=== PATIENT | female | born 1980 | race Caucasian/White ===

== ENCOUNTER 2017-10-29 21:08 | Emergency (ER) | payer SELFPAY ==
[~2017-10-29] VITALS: Ht 167.6 cm; Wt 68.0 kg
--- OUTSIDE RECORDS SUMMARY | 2017-10-29 21:13 | XMS REPORT | Continuity of Care Document ---
Author Author [facility] Organization [facility] Address Unknown Phone Unavailable Allergies Active Description Code Type Severity Reaction Onset Reported/Identified Relationship to Patient Clinical Status Yes NKANo Known Allergies NKA Miscellaneous Allergy Unknown N/A 12/22/2006 Medications There is no data. Problems Date Dx Coded Attending Type Code Diagnosis Diagnosed By 11/09/2014 Ot 959.2 11/09/2014 Ot 959.3 11/09/2014 Ot E000.8 11/09/2014 Ot E849.0 11/09/2014 Ot E928.9 11/09/2014 Ot 726.10 11/09/2014 Ot 959.3 11/09/2014 Ot 959.7 11/09/2014 Ot E000.8 11/09/2014 Ot E849.0 11/09/2014 Ot E928.9 11/09/2014 CARINE FRANKLIN, MARQUIS Gallardo Ot 625.0 11/12/2014 Ot 959.2 11/12/2014 Ot 959.3 11/12/2014 Ot E000.8 11/12/2014 Ot E849.0 11/12/2014 Ot E928.9 11/12/2014 Ot 726.10 11/12/2014 Ot 959.3 11/12/2014 Ot 959.7 11/12/2014 Ot E000.8 11/12/2014 Ot E849.0 11/12/2014 Ot E928.9 11/12/2014 MARQUIS HAWK MD Ot 625.0 11/19/2014 CARINE FRANKLIN, MARUQIS Gallardo Ot 625.0 09/27/2016 Ot 959.2 SHLDR/UPPER ARM INJ NOS 09/27/2016 Ot 959.3 ELB/FOREARM/ WRST INJ NOS 09/27/2016 Ot E000.8 OTHER EXTERNAL CAUSE STATUS 09/27/2016 Ot E849.0 ACCIDENT IN HOME 09/27/2016 Ot E928.9 ACCIDENT NOS 09/27/2016 Ot 726.10 BURSAE TENDONS DIS SHLDER NOS 09/27/2016 Ot 959.3 ELB/FOREARM/ WRST INJ NOS 09/27/2016 Ot 959.7 LOWER LEG INJURY NOS 09/27/2016 Ot E000.8 OTHER EXTERNAL CAUSE STATUS 09/27/2016 Ot E849.0 ACCIDENT IN HOME 09/27/2016 Ot E928.9 ACCIDENT NOS 09/27/2016 MARQUIS HAWK MD Ot 625.0 DYSPAREUNIA 02/09/2017 Ot 959.2 SHLDR/UPPER ARM INJ NOS 02/09/2017 Ot 959.3 ELB/FOREARM/ WRST INJ NOS 02/09/2017 Ot E000.8 OTHER EXTERNAL CAUSE STATUS 02/09/2017 Ot E849.0 ACCIDENT IN HOME 02/09/2017 Ot E928.9 ACCIDENT NOS 02/09/2017 Ot 726.10 BURSAE TENDONS DIS SHLDER NOS 02/09/2017 Ot 959.3 ELB/FOREARM/ WRST INJ NOS 02/09/2017 Ot 959.7 LOWER LEG INJURY NOS 02/09/2017 Ot E000.8 OTHER EXTERNAL CAUSE STATUS 02/09/2017 Ot E849.0 ACCIDENT IN HOME 02/09/2017 Ot E928.9 ACCIDENT NOS 02/09/2017 MARQUIS HAWK MD Ot 625.0 DYSPAREUNIA 02/10/2017 Ot 959.2 SHLDR/UPPER ARM INJ NOS 02/10/2017 Ot 959.3 ELB/FOREARM/ WRST INJ NOS 02/10/2017 Ot E000.8 OTHER EXTERNAL CAUSE STATUS 02/10/2017 Ot E849.0 ACCIDENT IN HOME 02/10/2017 Ot E928.9 ACCIDENT NOS 02/10/2017 Ot 726.10 BURSAE TENDONS DIS SHLDER NOS 02/10/2017 Ot 959.3 ELB/FOREARM/ WRST INJ NOS 02/10/2017 Ot 959.7 LOWER LEG INJURY NOS 02/10/2017 Ot E000.8 OTHER EXTERNAL CAUSE STATUS 02/10/2017 Ot E849.0 ACCIDENT IN HOME 02/10/2017 Ot E928.9 ACCIDENT NOS 02/10/2017 MARQUIS HAWK MD Ot 625.0 DYSPAREUNIA Procedures There is no data. Results There is no data. Encounters ACCT No. Visit Date/Time Discharge Status Pt. Type Provider Facility Loc./Unit Complaint [id number] 10/02/2014 10:38:00 10/02/2014 23:59:59 [facility] Outpatient CARINE FRANKLIN, MARQUIS [facility] RAD DYSPAREUNIA [id number] 10/05/2012 08:05:00 Document Registration [id number] 09/06/2012 09:47:00 Document Registration
[2017-10-29] MEDS ORDERED: KETOROLAC 30 MG/ML VIAL IM ONE (21:45)
[2017-10-29] MEDS ORDERED: TETANUS,DIPTH,PERTUSS P/F (BOOSTRIX) 0.5 ML VIAL IM ONE (21:45)
--- NOTE | 2017-10-29 22:27 | ED Upper Extremity ---
General Chief Complaint: Laceration Stated Complaint: L HAND LAC Nursing Triage Note: PT TO ED 7 W/ S.O. FOR C/O CATFISH ISABEL CAUGHT IN LT HAND. REPORTS WAS ABLE TO REMOVE THE ISABEL BUT C/O PAIN, SWELLING TO SITE. NO OTHER C/O VOICED Nursing Sepsis Screen: No Definite Risk Source: patient, spouse Exam Limitations: no limitations History of Present Illness Date Seen by Provider: Oct 29, 2017 Time Seen by Provider: 22:12 Initial Comments patient presents to ER by private conveyance with her spouse and a chief complaint of left hand swelling between her first and second digit. She has a recent history of just prior to arrival she was fishing and a catfish isabel caught her on the dorsal side of the soft tissue webbing between her first and second digit of her left hand and stuck in her hand she slung her hand 2-3 times to get it to come off. Since then she's had a lot of pain, 8 out of 10 with swelling. Her wound has scabbed off but she said initially a little drainage came out of it. She can move her thumb very well but she feels a lot of pain with movement. Unsure when her last tetanus shot was. Allergies and Home Medications Allergies Coded Allergies: No Known Allergies (Verified Allergy, Unknown, 12/22/06) Home Medications Cephalexin 500 Mg Tablet, 500 MG PO QID Prescribed by: TULIO MOTT on 10/29/172247 Levofloxacin 750 Mg Tablet, 750 MG PO DAILY Prescribed by: TULIO MOTT on 10/29/172247 Patient Home Medication List Home Medication List Reviewed: Yes Constitutional: No chills, No diaphoresis EENTM: No ear pain, No eye pain Respiratory: No cough, No short of breath Cardiovascular: No chest pain, No palpitations Gastrointestinal: No constipation, No diarrhea, No nausea Genitourinary: No discharge, No dysuria : No Control/STD Prophylaxis: None, Other (spouse has a vasectomy) Musculoskeletal: see HPI, muscle pain, muscle stiffness Past Oyusxha-Fbzklz-Awdjrh Hx Patient Social History Alcohol Use: Occasionally Uses Recreational Drug Use: No Smoking Status: Current Everyday Smoker Type Used: Cigarettes Recent Foreign Travel: No Contact w/Someone Who Travel: No Recent Infectious Disease Expo: No Recent Hopitalizations: No Physical Abuse: No Sexual Abuse: No Mistreated: No Fear: No Past Medical History Surgeries: No Respiratory: No Cardiac: No Neurological: No Genitourinary: No Gastrointestinal: No Musculoskeletal: No Endocrine: No HEENT: No Cancer: No Psychosocial: No Nursing Suicide Risk Score: 0 Integumentary: No Blood Disorders: No Physical Exam Vital Signs Vital Signs - First Documented 10/29/17 21:28 Temp 98.2 Pulse 91 Resp 20 B/P (MAP) 123/70 (87) Pulse Ox 99 O2 Delivery Room Air Capillary Refill : Less Than 3 Seconds General Appearance: WD/WN, no apparent distress HEENT: PERRL/EOMI, pharynx normal Neck: non-tender, normal inspection Cardiovascular: normal peripheral pulses, regular rate, rhythm Respiratory: no respiratory distress, no accessory muscle use Wrist: Yes normal inspection, Yes non-tender, Yes no evidence of injury, Yes normal ROM Hand: laceration (2 mm round penetrating wound that is hemostatic.), soft tissue tenderness (webbing between the left hand first and second digit with a small puncture wound and scab over it.), stiffness, swelling Neurologic/Tendon: normal sensation, normal motor functions, normal tendon functions, responds to pain, no evidence tendon injury Neurologic/Psychiatric: alert, oriented x 3 Skin: other (erythematous, tender of the left hand) Progress/Results/Core Measures My Orders Orders - TULIO MOTT DiphtJaycee(Acell),Tet Adult (Boostrix (10/29/17 21:45) Hand, Left, 3 Views (10/29/17 21:35) Ketorolac Injection (Toradol Injection) (10/29/17 21:45) Cephalexin Capsule (Keflex Capsule) (10/29/17 23:00) Rx-Cephalexin Capsule (Rx-Keflex Capsule (10/29/17 22:52) Levofloxacin Tablet (Levaquin Tablet) (10/29/17 23:00) Rx-Levofloxacin (Rx-Levaquin) (10/29/17 22:52) Medications Given in ED Current Medications Medications Dose Ordered Sig/Ramsey Route Start Time Stop Time Status Last Admin Dose Admin Diphtheria/ Tetanus/Acell Pertussis 0.5 ml ONCE ONCE IM 10/29/17 21:45 10/29/17 21:46 DC 10/29/17 21:50 0.5 ML Ketorolac Tromethamine 30 mg ONCE ONCE IM 10/29/17 21:45 10/29/17 21:46 DC 10/29/17 21:50 30 MG Vital Signs/I&O 10/29/17 21:28 Temp 98.2 Pulse 91 Resp 20 B/P (MAP) 123/70 (87) Pulse Ox 99 O2 Delivery Room Air Blood Pressure Mean: 87 Progress Note : Time: 22:29 Progress Note Thoroughly clean the wound and tried to explore. There is no palpable foreign body retained. Nothing that would easily be explored. We'll give her a tetanus shot start her on antibiotics and have her follow-up with orthopedics hand surgeon for reassessment next week. We'll start her coverage with Keflex and Levaquin. 2240: Reexamination after cleaning the wound demonstrates a small thread of fascial tissue. Tendons are all in good shape. We'll trim off the excess tissue. We've flush the wound and it is bleeding freely. We'll apply a dressing and have her follow up outpatient with orthopedics. Diagonstic Imaging: Xray Plain Films/CT/US/NM/MRI: hand (left) Comments Soft tissue swelling but no definite free air. There may be a small opacity consistent with retained foreign body in the webbing between the first and second digits. No acute osseous abnormalities. Reviewed: Reviewed by Me Consults : Consulting Physician: YUVAL LOPEZ MD Consults Notes Discussed the case with general surgery and he recommends follow-up with orthopedics, hand surgeon. He says make sure that tetanus is up-to-date and he agrees with antibiotic selection. Departure Impression Primary Impression: Struck by other fish, initial encounter Additional Impression: Cellulitis Qualified Codes: L03.114 - Cellulitis of left upper limb Disposition: HOME, SELF-CARE Condition: Improved Departure-Patient Inst. Decision time for Depature: 22:32 Referrals: MARQUIS HAWK MD (PCP/Family) Primary Care Physician Patient Instructions: Cellulitis (Skin Infection), Adult (DC) Add. Discharge Instructions: seating upholsterer the Keflex and take one capsule 4 times a day for the next week. Take the Levaquin 750 mg daily for one week. Tuesday morning, 10/31/[address] [facility] to get an appointment to be seen by a hand specialist to be reassessed within 1 week. If you begin to have nausea and vomiting, fevers or severe pain not controlled by Tylenol 1000 mg every 8 hours, Motrin 800 mg every 8 hours or the hydrocodone one tablet every 6 hours you should return to the ER for further evaluation. All discharge instructions reviewed with patient and/or family. Voiced understanding. Scripts Hydrocodone Bit/Acetaminophen (Hydrocodone/Acetaminophen 5/325mg Tablet) 1 Tab Tab 1 EACH PO Q6H PRN for BREAKTHROUGH PAIN, #10 TAB 0 Refills Prov: TULIO MOTT 10/29/17 Levofloxacin (Levaquin) 750 Mg Tablet 750 MG PO DAILY for 7 Days, #7 TAB 0 Refills Prov: TULIO MOTT 10/29/17 Cephalexin (Cephalexin) 500 Mg Tablet 500 MG PO QID for 7 Days, #28 TAB 0 Refills Prov: TULIO MOTT 10/29/17 Copy Copies To 1: GREGORIO CASTRO MD; MARQUIS HAWK MD, TITUS J Oct 29, 2017 22:27
[2017-10-29] MEDS ORDERED: CEPH500T PO (22:48)
[2017-10-29] MEDS ORDERED: LEVO750T9 PO (22:48)
[2017-10-29] MEDS ORDERED: RX-LEVOFLOXACIN 500 MG (LEVAQUIN) TAB #1 PPK PO STA (22:52)
[2017-10-29] MEDS ORDERED: RX-CEPHALEXIN (KEFLEX) 250 MG CAP PPK#4 PO STA (22:52)
[2017-10-29] MEDS ORDERED: LEVOFLOXACIN 750 MG TAB (LEVAQUIN) PO ONE (23:00)
[2017-10-29] MEDS ORDERED: CEPHALEXIN 250 MG (KEFLEX) CAP PO ONE (23:00)
[2017-10-29] MEDS ORDERED: ACHD5005 PO (23:01)
[2017-10-29] MEDS ORDERED: LEVOFLOXACIN 500 MG TAB (LEVAQUIN) ONE (23:02)
[2017-10-29 23:12] VITALS: BP 123/70
[2017-10-29] MEDS ORDERED: RX-HYDROCODONE/APAP 5/325 MG #4 TAB PK PO PRN (23:15)
--- NOTE | 2017-10-30 06:53 | Diagnostic Imaging Report ---
EXAMINATION: Left hand, 3 views. COMPARISON: None. HISTORY: A 37-year-old female, catfish bite between the thumb and index finger. Pain and swelling. FINDINGS: There are areas of lucency within the soft tissues between the first and second digits at the level of the metacarpals. This potentially may relate to a penetrating type injury and/or infectious process. There is a curvilinear small radiodensity measuring approximately 2 mm in size also in this location. This potentially could relate to a small foreign body. There is no cortical or aggressive bone destruction. There is no periosteal reaction. There is no identified acute fracture or dislocation. IMPRESSION: 1. Areas of abnormal lucency within the soft tissues projecting between the first and second digits at the level of the metacarpals which may relate to penetrating type injury and/or infectious process. 2. Linear 2.5 mm area of increased attenuation in this region of abnormal soft tissue gas which may potentially reflect a foreign body. 3. No radiographic evidence of osteomyelitis. 4. No identified acute fracture. Dictated by: Dictated on workstation # [id number]
== END 2017-10-29 23:12 | disposition home or self-care (01) ==
LOC: EDUNIT# 21:08 → ER 21:09
DX: S61.432A Puncture wound without foreign body of left hand, initial encounter (principal); L03.114 Cellulitis of left upper limb; F17.210 Nicotine dependence, cigarettes, uncomplicated; W56.52XA Struck by other fish, initial encounter
CPT/HCPCS: 73130; 90471; 90715; 96372